=== PATIENT | male | born 1970 | race Caucasian/White ===

== ENCOUNTER 2018-04-25 20:45 | Emergency (ER) | payer BC, OTHER ==
[~2018-04-25] VITALS: Ht 180.3 cm; Wt 80.0 kg
--- NOTE | 2018-04-25 21:20 | NUR ---
he said his last drink was 6 hours ago. He feels 'shaky' and c/o a headache. states he feels like he is in withdrawls from ETOH. He normally drinks 6 beers a day. He drank that today.
[2018-04-25] MEDS ORDERED: ondansetron/PF 4mg/2ml inj IV ONE (21:35)
[2018-04-25] MEDS ORDERED: normal saline 1000ML IV soln IVB ONE (21:35)
[2018-04-25 21:57] LABS: BASOPHILS # (AUTO) 0.1 X10'3 (0-0.2); BASOPHILS % (AUTO) 0.6 % (0-1); EOSINOPHILS % (AUTO) 0.1 % (0-6); HEMATOCRIT 44.6 % (42.0-52.0); HEMOGLOBIN 15.3 g/dl (14.0-17.9); LYMPHOCYTES # (AUTO) 1.2 X10'3 (1.1-4.8); MEAN CORPUSCULAR HEMOGLOBIN 29.2 PG (27.0-31.0); MEAN CORPUSCULAR HGB CONC 34.3 g/dL (33.0-36.5); MONOCYTES # (AUTO) 0.5 X10'3 (0-0.9); MONOCYTES % (AUTO) 5.4 % (2-12); NEUTROPHILS % (AUTO) 81.9 % (42-75); PLATELET COUNT 280 X10'3 (140-440); RED BLOOD COUNT 5.24 X10'6 (4.70-6.10); RED CELL DISTRIBUTION WIDTH 15.5 % (11.5-14.5); WHITE BLOOD COUNT 9.8 X10'3 (4.5-11.0)
[2018-04-25 22:07] LABS: ALANINE AMINOTRANSFERASE 64 U/L (12-78); ALBUMIN 4.1 G/DL (3.4-5.0); ALBUMIN/GLOBULIN RATIO 1.2 (1.1-1.5); ALKALINE PHOSPHATASE 103 IU/L (46-116); ANION GAP 16 (8-16); ASPARTATE AMINO TRANSFERASE 90 U/L (10-37); BILIRUBIN,TOTAL 0.6 MG/DL (0.1-1.0); BLOOD UREA NITROGEN 13 MG/DL (7-18); BUN/CREATININE RATIO 14.1 (5.4-32.0); CALCIUM 8.3 MG/DL (8.5-10.1); CHLORIDE 100 MMOL/L (99-107); CREATININE 0.92 MG/DL (0.60-1.10); ETHANOL 0.291 GM/DL (0.0-0.010); GLUCOSE 86 MG/DL (70-104); POTASSIUM 3.8 MMOL/L (3.5-5.1); SODIUM 139 MMOL/L (135-145); TOTAL CARBON DIOXIDE 23.3 MMOL/L (24-32); TOTAL PROTEIN 7.6 G/DL (6.4-8.2); eGFR 87 ML/MIN
[2018-04-25] MEDS ORDERED: CHLO1CAP PO (22:26)
[2018-04-25 22:40] VITALS: BP 130/69
== END 2018-04-25 22:41 | disposition home or self-care (01) ==
LOC: ER 20:45
DX: F10.229 Alcohol dependence with intoxication, unspecified (principal); R11.10 Vomiting, unspecified; R19.7 Diarrhea, unspecified; R10.13 Epigastric pain; F17.200 Nicotine dependence, unspecified, uncomplicated; Z88.8 Allergy status to other drugs, medicaments and biological substances; Y90.9 Presence of alcohol in blood, level not specified
CPT/HCPCS: 36415; 80053; 80320; 85025; 96374; 99283; J2405; J7030

== ENCOUNTER 2018-05-08 13:04 | Emergency (ER) | payer OTHER ==
[~2018-05-08] VITALS: Ht 180.3 cm; Wt 84.1 kg
[~2018-05-08 13:04] MED LIST: CHLO1CAP PO
[2018-05-08 13:09] VITALS: BP 169/75
[2018-05-08] MEDS ORDERED: TETanus/Pertussis (Acell)/Diphther VAC/PF (Tdap-Adult) 0.5ml syringe IM ONE (14:00)
[2018-05-08] MEDS ORDERED: LIDOcaine 40mg/ml topical solution MM ONE (14:00)
--- NOTE | 2018-05-08 14:29 | NUR ---
APPLIED 4% LIDOCAIN TO INFECTED AREA.
[2018-05-08] MEDS ORDERED: CEPH-572 PO (15:11)
[2018-05-08] MEDS ORDERED: SULF1TAB49 PO (15:11)
[2018-05-08] MEDS ORDERED: cephalexin 250mg capsule PO ONE (15:40)
[2018-05-08] MEDS ORDERED: sulfamethoxazole/trimethoprim DS (800/160mg) tablet PO ONE (15:40)
--- NOTE | 2018-05-08 15:55 | NUR ---
PT REQUESTED FIRST DOSE HERE DUE TO NOT GETTING PAID TOMORROW.
== END 2018-05-08 16:27 | disposition home or self-care (01) ==
LOC: ER 13:05
DX: L03.116 Cellulitis of left lower limb (principal); L03.115 Cellulitis of right lower limb; F12.90 Cannabis use, unspecified, uncomplicated; F17.200 Nicotine dependence, unspecified, uncomplicated; Z98.890 Other specified postprocedural states; Z88.8 Allergy status to other drugs, medicaments and biological substances
CPT/HCPCS: 87070; 87077; 87186; 90471; 90715; 97597; 99284; J2001